=== PATIENT | female | born 1995 | race African-American/Black ===

== ENCOUNTER 2017-06-13 13:21 | Emergency (ER) | payer OTHER ==
[2017-06-13 13:30] VITALS: TEMP 98.9; BMI 35.2
--- NOTE | 2017-06-13 13:49 | PDOC ---
History of Present Illness - General Chief Complaint: Headache Stated Complaint: HEADACHE (PCP SENT) Time Seen by Provider: 06/13/17 13:36 - History of Present Illness Initial Comments: 06/13/17 13:49 CHIEF COMPLAINT: sent by neurology HISTORY OF PRESENT ILLNESS: 22 yo F with no significant PMH sent to ED by MD Solorzano for possible subarachnoid hemorrhage. Patient reports that had "visual flashes" beginning approximately a month ago and was evaluated by "an eye doctor , and my eyes were fine." I went to see Dr. Solorazno and he wanted to get an MRI for me, but there was a delay with insuranec issues and because I couldn't sit in the regular MRI machine, I went and got an open MRI yesterday." At this time patient denies any headache, dizziness, nausea, or visual changes. She does report having "terrible migraines every time I worked out for a few weeks, so I stopped exercising and stopped having the headaches." She denies any history of head injury or trauma. She denies any other symptoms at this time. No recent travel or sick contacts. PAST MEDICAL HISTORY: Denies past medical history FAMILY HISTORY: Denies SOCIAL HISTORY:Denies tobacco, alcohol, illicit drug use. SURGICAL HISTORY: Denies ALLERGIES: No known drug allergies REVIEW OF SYSTEMS General/Constitutional: Denies fever or chills. Denies weakness, weight change. HEENT: Denies change in vision. Denies ear pain or discharge. Denies sore throat. Cardiovascular: Denies chest pain or shortness of breath. Respiratory: Denies cough, wheezing, or hemoptysis. Gastrointestinal: Denies nausea, vomiting, diarrhea or constipation. Denies rectal bleeding. Genitourinary: Denies dysuria, frequency, or change in urination. Musculoskeletal: Denies joint or muscle swelling or pain. Denies neck or back pain. Skin and breasts: Denies rash or easy bruising. Neurologic: Exertional headaches for "weeks", none at this time. Denies vertigo , loss of consciousness, or loss of sensation. PHYSICAL EXAM General Appearance: Well-appearing, appropriately dressed. No apparent distress. HEENT: EOMI, PERRLA, normal ENT inspection, normal voice, TMs normal, pharynx normal. No conjunctival pallor. No photophobia, scleral icterus. Neck: Supple. Trachea midline. No tenderness, rigidity, carotid bruit, stridor , lymphadenopathy, or thyromegaly. Respiratory/Chest: Lungs CTAB. No shortness of breath, chest tenderness, respiratory distress, accessory muscle use. No crackles, rales, rhonchi, stridor , wheezing, dullness Cardiovascular: RRR. S1, S2. No JVD, murmur, bradycardia, tachycardia. Vascular Pulses: Dorsalis-Pedis (R): 2+, Dorsalis-Pedis (L): 2+ Gastrointestinal/Abdominal: Normal bowel sounds. Abdomen soft, non-distended. No tenderness or rebound tenderness. No organomegaly, pulsatile mass, guarding , hernia, hepatomegaly, splenomegaly. Lymphatic: No adenopathy, tenderness. Musculoskeletal/Extremities: Normal inspection. FROM of all extremities, normal capillary refill. Pelvis Stable. No CVA tenderness. No tenderness to extremities, pedal edema, swelling, erythema or deformity. Integumentary: Appropriate color, dry, warm. No cyanosis, erythema, jaundice or rash Neurologic: operater II-XII intact. Fully oriented, alert. Appropriate mood/affect. Motor strength 5/5. No appreciable EOM palsy, facial droop or sensory deficit. 06/13/17 14:15 Past History - Past Medical History Allergies/Adverse Reactions: Allergies Allergy/AdvReac Type Severity Reaction Status Date / Time No Known Allergies Allergy Verified 06/13/17 13:24 Home Medications: Ambulatory Orders NK [No Known Home Medication] 05/12/17 CVA: No COPD: No DVT: No - Immunization History Immunization Up to Date: Yes - Suicide/Smoking/Psychosocial Hx Smoking History: Never smoked Have you smoked in the past 12 months: No Information on smoking cessation initiated: No Hx Alcohol Use: No Drug/Substance Use Hx: No Substance Use Type: None *Physical Exam - Vital Signs Last Vital Signs Temp Pulse Resp BP Pulse Ox 98.9 F 102 H 18 134/75 100 06/13/17 13:25 06/13/17 13:25 06/13/17 13:25 06/13/17 13:25 06/13/17 13:25 ED Treatment Course - LABORATORY CBC & Chemistry Diagram: 06/13/17 14:10 06/13/17 15:09 Medical Decision Making - Medical Decision Making 22 yo F with no significant PMH sent to ED by MD Solorzano for possible subarachnoid hemorrhage. -labs -head ct and cta per md solorzano ct and cta negative. Discussed case with MD Solorzano. Patient is to f/u with neurosurgery and has been given strict return instructions. *DC/Admit/Observation/Transfer Diagnosis at time of Disposition: History of headache - Discharge Dispostion Disposition: HOME Condition at time of disposition: Stable Admit: No - Referrals Referrals: Yfn Gonsalves MD [Staff Physician] - - Patient Instructions Printed Discharge Instructions: Subarachnoid Hemorrhage Additional Instructions: As discussed, you MUST follow up with Dr. Gonsalves within the next 48 hours. Do NOT take any NSAIDS (including, Motrin, Advil, Aleve, or ibuprofen), or exercise , lift heavy objects, strain while moving your bowels, or do anything that could increase pressure in your head. If you develop any new headache, change in vision, weakness, difficulty speaking or eating, or your family notices any change in behavior, you MUST return to the ER IMMEDIATELY. - Post Discharge Activity Forms/Work/School Notes: Back to Work
--- NOTE | 2017-06-13 14:53 | PDOC ---
*Physical Exam - Vital Signs Last Vital Signs Temp Pulse Resp BP Pulse Ox 98.9 F 102 H 18 134/75 100 06/13/17 13:25 06/13/17 13:25 06/13/17 13:25 06/13/17 13:25 06/13/17 13:25 Medical Decision Making - Medical Decision Making 06/13/17 14:51 Patient seen and evaluated with the nurse practitioner. I agree with the overall evaluation, assessment, and management with the following summary of visit: 22y/o F sent to ED after diagnosed with SAH on outpatient MRI today in the setting of intermittent headache. Seen by Dr. Callahan. asx now with normal neuro exam Admit for SAH, neurology and NSGY consults HD and neuro stable at this time. *DC/Admit/Observation/Transfer Diagnosis at time of Disposition: Subarachnoid hemorrhage - Referrals - Patient Instructions - Post Discharge Activity
[2017-06-13 15:15] LABS: HEMATOCRIT 38.8 % (32.4-45.2); HEMOGLOBIN 13.1 GM/dL (10.7-15.3); MCH 28.2 pg (25.7-33.7); MCHC 33.7 g/dl (32.0-36.0); MEAN CELL VOLUME 83.8 fl (80-96); MEAN PLT VOLUME 9.3 fl (7.5-11.1); PLATELET COUNT 275 K/MM3 (134-434); RBC 4.63 M/mm3 (3.60-5.2); RDW 13.5 % (11.6-15.6); WHITE BLOOD COUNT 6.2 K/mm3 (4.0-10.0)
[2017-06-13 15:49] LABS: INR 0.97 (0.82-1.09)
[2017-06-13 15:51] LABS: ACTIVATED PTT 29.1 SECONDS (26.9-34.4)
[2017-06-13 16:07] LABS: ALBUMIN 4.5 g/dl (3.4-5.0); ANION GAP 10 (8-16); BILIRUBIN,TOTAL 0.5 mg/dL (0.2-1.0); BLOOD UREA NITROGEN 14 mg/dL (7-18); CALCIUM 9.2 mg/dL (8.5-10.1); CHLORIDE 100 mmol/L (98-107); CO2 28 mmol/L (21-32); GLUCOSE,RANDOM 77 mg/dL (74-106); SGOT/AST 34 U/L (15-37); SGPT/ALT 22 U/L (12-78); SODIUM 138 mmol/L (136-145); TOT PROT 8.6 g/dl (6.4-8.2)
[2017-06-13 16:08] LABS: ALK PHOS 84 U/L (45-117)
[2017-06-13 18:28] VITALS: BP 132/74; PULSE 95
== END 2017-06-13 20:00 | disposition home or self-care (01) ==
LOC: JER 13:21
DX: R51 Headache (principal)
CPT/HCPCS: 36415; 70450-TC; 70496-TC; 80053; 84703; 85027; 85610; 85730; 86850; 86900; 86901; 99284-25

== ENCOUNTER 2018-11-10 17:34 | Emergency (ER) | payer OTHER ==
[2018-11-10 17:39] VITALS: TEMP 98.8; BMI 37.4
--- NOTE | 2018-11-10 18:21 | PDOC ---
History of Present Illness - General Chief Complaint: Pain, Acute Stated Complaint: R UPPER ABDOMINAL PAIN Time Seen by Provider: 11/10/18 17:57 - History of Present Illness Initial Comments: 11/10/18 18:05 CHIEF COMPLAINT: RUQ pain HISTORY OF PRESENT ILLNESS: 23 yo F with no PMH presents to ED with pain to RUQ since this morning. Patient denies any fever, N/V/D but reports "mathews colored stool today." Denies any recent travel. Patient does report eating [employer] for the first time in a long time yesterday. No recent travel or sick contacts. PAST MEDICAL HISTORY: Denies past medical history FAMILY HISTORY: Denies SOCIAL HISTORY: Denies tobacco, alcohol, illicit drug use. SURGICAL HISTORY: Denies ALLERGIES: No known drug allergies REVIEW OF SYSTEMS General/Constitutional: Denies fever or chills. Denies weakness, weight change. HEENT: Denies change in vision. Denies ear pain or discharge. Denies sore throat. Cardiovascular: Denies chest pain or shortness of breath. Respiratory: Denies cough, wheezing, or hemoptysis. Gastrointestinal: RUQ pain with light colored stool since this morning. Denies nausea, vomiting, diarrhea or constipation. Denies rectal bleeding. Genitourinary: Denies dysuria, frequency, or change in urination. Musculoskeletal: Denies joint or muscle swelling or pain. Denies neck or back pain. Skin and breasts: Denies rash or easy bruising. Neurologic: Denies headache, vertigo, loss of consciousness, or loss of sensation. Psychiatric: Denies depression or anxiety. PHYSICAL EXAM General Appearance: Well-appearing, appropriately dressed. No apparent distress , no intoxication. HEENT: EOMI, PERRLA, normal ENT inspection, normal voice, TMs normal, pharynx normal. No conjunctival pallor. No photophobia, scleral icterus. Neck: Supple. Trachea midline. No tenderness, rigidity, carotid bruit, stridor , lymphadenopathy, or thyromegaly. Respiratory/Chest: Lungs CTAB. No shortness of breath, chest tenderness, respiratory distress, accessory muscle use. No crackles, rales, rhonchi, stridor , wheezing, dullness Cardiovascular: RRR. S1, S2. No JVD, murmur, bradycardia, tachycardia. Vascular Pulses: Dorsalis-Pedis (R): 2+, Dorsalis-Pedis (L): 2+ Gastrointestinal/Abdominal: Normal bowel sounds. Abdomen soft, non-distended. No tenderness or rebound tenderness. No organomegaly, pulsatile mass, guarding , hernia, hepatomegaly, splenomegaly. Lymphatic: No adenopathy, tenderness. Musculoskeletal/Extremities: Normal inspection. FROM of all extremities, normal capillary refill. Pelvis Stable. No CVA tenderness. No tenderness to extremities, pedal edema, swelling, erythema or deformity. Integumentary: Appropriate color, dry, warm. No cyanosis, erythema, jaundice or rash Neurologic: mobile equipment servicer II-XII intact. Fully oriented, alert. Appropriate mood/affect. Motor strength 5/5. No appreciable EOM palsy, facial droop or sensory deficit. 11/10/18 18:22 Past History - Past Medical History Allergies/Adverse Reactions: Allergies Allergy/AdvReac Type Severity Reaction Status Date / Time No Known Allergies Allergy Verified 11/10/18 17:39 Home Medications: Ambulatory Orders NK [No Known Home Medication] 05/12/17 CVA: No COPD: No DVT: No - Immunization History Immunization Up to Date: Yes - Suicide/Smoking/Psychosocial Hx Smoking History: Never smoked Have you smoked in the past 12 months: No Hx Alcohol Use: Yes (OCCASIONALLY) Drug/Substance Use Hx: No Substance Use Type: None *Physical Exam - Vital Signs Last Vital Signs Temp Pulse Resp BP Pulse Ox 98.8 F 98 H 14 126/70 98 11/10/18 17:36 11/10/18 17:36 11/10/18 17:36 11/10/18 17:36 11/10/18 17:36 ED Treatment Course - LABORATORY CBC & Chemistry Diagram: 11/10/18 19:07 11/10/18 19:07 Medical Decision Making - Medical Decision Making 11/10/18 18:21 23 yo F with no PMH presents to ED with pain to [facility] this morning. -labs -US 11/10/18 20:21 Labs, US negative. Patient reassessed, at this time she states her pain has completely resolved and she feels fine. Will dc with f/u with GI. Return precautions given. *DC/Admit/Observation/Transfer Diagnosis at time of Disposition: Abdominal pain Qualifiers: Abdominal location: right upper quadrant Qualified Code(s): R10.11 - Right upper quadrant pain - Discharge Dispostion Disposition: HOME Condition at time of disposition: Stable Decision to Admit order: No - Referrals Referrals: Amilcar Klein MD [Staff Physician] - - Patient Instructions Printed Discharge Instructions: DI for Abdominal Pain-Adult Additional Instructions: Your tests all came back negative today. If your abdominal pain returns or you develop fever, chills, nausea, vomiting, diarrhea, or any new or worsening symptoms, please return to the ER. - Post Discharge Activity
[2018-11-10 19:21] LABS: BASO % 0.2 % (0-2.0); EOS % 1.3 % (0-4.5); HEMATOCRIT 37.7 % (32.4-45.2); HEMOGLOBIN 12.5 GM/dL (10.7-15.3); LYMPH % 30.2 % (8-40); MCH 27.7 pg (25.7-33.7); MCHC 33.1 g/dl (32.0-36.0); MEAN CELL VOLUME 83.6 fl (80-96); MEAN PLT VOLUME 8.5 fl (7.5-11.1); MONO % 9.9 % (3.8-10.2); NEUT % 58.4 % (42.8-82.8); PLATELET COUNT 269 K/MM3 (134-434); RBC 4.51 M/mm3 (3.60-5.2); RDW 13.9 % (11.6-15.6)
[2018-11-10 19:56] LABS: ALBUMIN 3.8 g/dl (3.4-5.0); BILIRUBIN,TOTAL 0.3 mg/dL (0.2-1); BLOOD UREA NITROGEN 13.6 mg/dL (7-18); CALCIUM 8.8 mg/dL (8.5-10.1); CREATININE 0.8 mg/dL (0.55-1.3); POTASSIUM 4.4 mmol/L (3.5-5.1); TOT PROT 7.5 g/dl (6.4-8.2)
[2018-11-10 20:14] LABS: EPI CELLS 2.2 /HPF (0-5/HPF); HYALINE CASTS 0 /lpf (0-8); URINE APPEARANCE CLEAR; URINE BACTERIA 48.1 /hpf (NEGATIVE); URINE BILIRUBIN NEGATIVE (NEGATIVE); URINE COLOR YELLOW; URINE GLUCOSE (UA) NEGATIVE (NEGATIVE); URINE KETONE NEGATIVE (NEGATIVE); URINE LEUK ESTERASE TRACE (NEGATIVE); URINE NITRITE NEGATIVE (NEGATIVE); URINE PROTEIN NEGATIVE (NEGATIVE); URINE RBC 2 /hpf (0-4); URINE UROBILINOGEN 0.2 mg/dL (0.2-1.0); URINE WBC 2 /hpf (0-5)
[2018-11-10 21:07] VITALS: BP 121/73; PULSE 94
== END 2018-11-10 20:49 | disposition home or self-care (01) ==
LOC: JER 17:34
DX: R10.11 Right upper quadrant pain (principal)
CPT/HCPCS: 36415; 76705-TC; 80053; 81003; 83690; 84703; 85025; 99283-25

== ENCOUNTER 2019-01-08 09:42 | Emergency (ER) | payer OTHER ==
[2019-01-08 09:54] VITALS: BP 122/77; PULSE 97; TEMP 98.5; BMI 38.2
[2019-01-08] MEDS ORDERED: KETOROLAC TROMETHAMINE 60 MG/2 ML VIAL IM ONE (10:32)
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
[2019-01-08] MEDS ORDERED: KETOROLAC TROMETHAMINE 60 MG/2 ML VIAL ONE ×2 (10:43→11:33)
== END 2019-01-08 11:58 | disposition home or self-care (01) ==
LOC: JERFT 09:42
PROC: 3E0233Z Introduction of Anti-inflammatory into Muscle, Percutaneous Approach (ICD-10-PCS; principal; 2019-01-08)
DX: S13.4XXA Sprain of ligaments of cervical spine, initial encounter (principal); V47.5XXA Car driver injured in collision with fixed or stationary object in traffic accident, initial encounter; Y92.411 Interstate highway as the place of occurrence of the external cause; Y93.89 Activity, other specified; Y99.8 Other external cause status
CPT/HCPCS: 84703; 99281-25